=== PATIENT | male | born 1960 | race Caucasian/White ===

== ENCOUNTER 2023-01-03 13:00 | Emergency (ER) | payer MEDICARE ==
[~2023-01-03] VITALS: Ht 182.9 cm; Wt 117.5 kg
[2023-01-03] MEDS ORDERED: XARELTO20 MG PO (13:15)
[2023-01-03] MEDS ORDERED: ENTRESTO 24 MG1 EACH (13:15)
[2023-01-03 13:40] LABS: BASOPHILS ABSOLUTE AUTO 0.05 K/mm3 (0.00-0.23); BASOPHILS PERCENT AUTO 1 % (0-2); EOSINOPHILS ABSOLUTE AUTO 0.16 K/mm3 (0.00-0.68); EOSINOPHILS PERCENT AUTO 2 % (0-6); Hemoglobin 18.3 g/dL (13.5-17.5); IMMATURE GRAN ABSOLUTE AUTO 0.09 K/mm3 (0.00-0.10); IMMATURE GRAN PERCENT AUTO 1 % (0-1); LYMPHOCYTES ABSOLUTE AUTO 1.75 K/mm3 (0.84-5.20); LYMPHOCYTES PERCENT AUTO 25 % (21-46); MONOCYTES ABSOLUTE AUTO 0.61 K/mm3 (0.16-1.47); MONOCYTES PERCENT AUTO 9 % (4-13); Mean Corpuscular HGB 30.7 pg (26.0-34.0); Mean Corpuscular HGB Conc 33.9 g/dL (31.5-36.5); Mean Corpuscular Volume 91 fL (80-100); NEUTROPHILS PERCENT AUTO 62 % (41-73); Platelet Count 132 K/mm3 (150-400); RDW Coefficient Variation 13.1 % (11.7-14.2); RDW Standard Deviation 43.8 fL (35.1-46.3); Red Blood Cell Count 5.97 M/mm3 (4.30-5.90); White Blood Cell Count 7.06 K/mm3 (4.00-11.30)
[2023-01-03 13:59] LABS: Albumin, Blood 3.3 g/dL (3.4-5.0); Albumin/Globulin Ratio 0.9 (0.8-1.8); Bilirubin, Total 0.7 mg/dL (0.1-1.0); Bun/Creatinine Ratio 21.9 (12.0-20.0); Calcium, Blood 8.8 mg/dL (8.5-10.1); Creatinine, Blood 0.82 mg/dL (0.60-1.20); Globulin, Blood 3.6 g/dL (2.2-4.0); Potassium, Blood 3.9 mmol/L (3.5-5.5); Total Protein, Blood 6.9 g/dL (6.4-8.2)
[2023-01-03 17:00] VITALS: BP 157/112
== END 2023-01-03 17:57 | disposition home or self-care (01) ==
LOC: ER 13:00
PROVIDERS: Emergency Medicine
DX: R07.89 Other chest pain (principal); R05.9 Cough, unspecified; Z79.899 Other long term (current) drug therapy; I50.9 Heart failure, unspecified; I25.2 Old myocardial infarction
CPT/HCPCS: 71045; 80053; 83880; 84484; 85025; 93005; 93010; 99284-25

== ENCOUNTER 2023-12-05 11:14 | Day surgery (SDC) | payer MEDICARE ==
[~2023-12-05 11:14] MED LIST: ABAT250V IV; Abatacept/Maltose 1,000 MG in NS 100 ML IV SCH; ENTRESTO 24 MG1 EACH; ENTRESTO 49 MG1 EAC2 PO; FISH OIL 1,0001 EA10 PO; FURO80 PO; MULVITA PO; POTCHL20ER PO; XARELTO PO; XARELTO20 MG PO
[2023-12-05] MEDS ORDERED: [UNRECOGNIZED DRUG - OTHER] PO (13:37)
[2023-12-05 13:46] VITALS: BP 155/87
[2023-12-05 14:25] LABS: BASOPHILS ABSOLUTE AUTO 0.05 K/mm3 (0.00-0.23); BASOPHILS PERCENT AUTO 1 % (0-2); EOSINOPHILS ABSOLUTE AUTO 0.14 K/mm3 (0.00-0.68); EOSINOPHILS PERCENT AUTO 2 % (0-6); Hematocrit 50.8 % (37.0-53.0); Hemoglobin 17.3 g/dL (13.5-17.5); IMMATURE GRAN ABSOLUTE AUTO 0.03 K/mm3 (0.00-0.10); IMMATURE GRAN PERCENT AUTO 1 % (0-1); LYMPHOCYTES ABSOLUTE AUTO 1.64 K/mm3 (0.84-5.20); LYMPHOCYTES PERCENT AUTO 26 % (21-46); MONOCYTES ABSOLUTE AUTO 0.65 K/mm3 (0.16-1.47); MONOCYTES PERCENT AUTO 11 % (4-13); Mean Corpuscular HGB 30.8 pg (26.0-34.0); Mean Corpuscular HGB Conc 34.1 g/dL (31.5-36.5); Mean Corpuscular Volume 91 fL (80-100); NEUTROPHILS PERCENT AUTO 60 % (41-73); Platelet Count 142 K/mm3 (150-400); RDW Coefficient Variation 13.2 % (11.7-14.2); RDW Standard Deviation 44.1 fL (35.1-46.3); Red Blood Cell Count 5.61 M/mm3 (4.30-5.90); White Blood Cell Count 6.21 K/mm3 (4.00-11.30)
[2023-12-05 14:47] LABS: C-REACTIVE PROTEIN, EXT RANGE 0.423 mg/dL (0.000-0.300)
[2023-12-05 14:48] LABS: Albumin, Blood 3.7 g/dL (3.4-5.0); Bilirubin, Total 0.9 mg/dL (0.1-1.0); Bun/Creatinine Ratio 16.9 (12.0-20.0); Calcium, Blood 8.9 mg/dL (8.5-10.1); Creatinine, Blood 0.95 mg/dL (0.60-1.20); Globulin, Blood 3.8 g/dL (2.2-4.0); Potassium, Blood 3.2 mmol/L (3.5-5.5); Total Protein, Blood 7.5 g/dL (6.4-8.2)
== END 2023-12-05 15:00 | disposition home or self-care (01) ==
LOC: ATC 11:14
PROVIDERS: Internal Medicine
DX: M05.79 Rheumatoid arthritis with rheumatoid factor of multiple sites without organ or systems involvement (principal); M75.42 Impingement syndrome of left shoulder; Z79.899 Other long term (current) drug therapy
CPT/HCPCS: 80053; 85025; 86140; 96365; J0129-JA

== ENCOUNTER 2024-01-09 01:04 | Day surgery (SDC) | payer MEDICARE, OTHER ==
[~2024-01-09 01:04] MED LIST changes: +[UNRECOGNIZED DRUG - OTHER] PO
[2024-01-09] MEDS ORDERED: Abatacept/Maltose 1,000 MG in NS 100 ML IV SCH (06:00)
[2024-01-09 14:57] VITALS: BP 123/84
== END 2024-01-09 16:07 | disposition home or self-care (01) ==
LOC: ATC 01:04
DX: M05.79 Rheumatoid arthritis with rheumatoid factor of multiple sites without organ or systems involvement (principal); M75.42 Impingement syndrome of left shoulder; Z79.899 Other long term (current) drug therapy
CPT/HCPCS: 96365; J0129-JA

== ENCOUNTER 2024-02-06 04:17 | Day surgery (SDC) | payer MEDICARE, OTHER ==
[~2024-02-06] VITALS: Wt 121.3 kg
[~2024-02-06 04:17] MED LIST changes: +AMLO5 PO; -Abatacept/Maltose 1,000 MG in NS 100 ML IV SCH; +Acerola C500 MG PO; +Aspir 8181 MG PO; +ENTRESTO 24 MG1 EAC2; -ENTRESTO 49 MG1 EAC2 PO; +Isosorbide Mono30 MG PO; +NITR.4SL SL; +Vitamin D1000 UNI1 PO
[2024-02-06] MEDS ORDERED: Abatacept/Maltose 1,000 MG in NS 100 ML IV SCH (06:00)
[2024-02-06 13:55] VITALS: BP 121/80
== END 2024-02-06 14:57 | disposition home or self-care (01) ==
LOC: ATC 04:17
DX: M05.79 Rheumatoid arthritis with rheumatoid factor of multiple sites without organ or systems involvement (principal); I25.10 Atherosclerotic heart disease of native coronary artery without angina pectoris; Z86.718 Personal history of other venous thrombosis and embolism; Z86.711 Personal history of pulmonary embolism
CPT/HCPCS: 96365; J0129-JA

== ENCOUNTER 2024-03-20 02:40 | Day surgery (SDC) | payer MEDICARE, OTHER ==
[2024-03-20] MEDS ORDERED: NS IV SCH (07:05)
[2024-03-20 15:15] VITALS: BP 133/77
[2024-03-20 15:49] LABS: Hematocrit 42.6 % (37.0-53.0); Hemoglobin 14.4 g/dL (13.5-17.5); Mean Corpuscular HGB 31.2 pg (26.0-34.0); Mean Corpuscular HGB Conc 33.8 g/dL (31.5-36.5); Mean Corpuscular Volume 92 fL (80-100); Mean Platelet Volume 9.7 fL (9.1-12.4); Platelet Count 144 K/mm3 (150-400); RDW Coefficient Variation 12.8 % (11.7-14.2); RDW Standard Deviation 42.9 fL (35.1-46.3); Red Blood Cell Count 4.62 M/mm3 (4.30-5.90); White Blood Cell Count 6.12 K/mm3 (4.00-11.30)
[2024-03-20 16:34] LABS: C-REACTIVE PROTEIN, EXT RANGE 0.484 mg/dL (0.000-0.300)
[2024-03-20 16:38] LABS: Albumin, Blood 3.5 g/dL (3.4-5.0); Bilirubin, Total 0.8 mg/dL (0.1-1.0); Bun/Creatinine Ratio 19.5 (12.0-20.0); Calcium, Blood 8.8 mg/dL (8.5-10.1); Creatinine, Blood 0.98 mg/dL (0.60-1.20); Globulin, Blood 3.6 g/dL (2.2-4.0); Potassium, Blood 3.3 mmol/L (3.5-5.5); Total Protein, Blood 7.1 g/dL (6.4-8.2)
[2024-03-20 16:51] LABS: BAND PERCENT MAN 1 % (0-8); BASOPHILS PERCENT MAN 0 % (0-2); EOSINOPHILS ABSOLUTE MAN 0.12 K/mm3 (0.00-0.68); EOSINOPHILS PERCENT MAN 2 % (0-6); LYMPHOCYTES PERCENT MAN 18 % (21-46); MONOCYTES ABSOLUTE MAN 0.61 K/mm3 (0.16-1.47); MONOCYTES PERCENT MAN 10 % (4-13); MYELOCYTE ABSOLUTE MAN 0.06 K/mm3 (0.00-0.00); MYELOCYTE PERCENT MAN 1 % (0-0); NEUTROPHILS ABSOLUTE MAN 4.22 K/mm3 (1.96-9.15); SEG NEUTROPHILS PERCENT MAN 68 % (41-73); TOTAL CELLS COUNTED 100
== END 2024-03-20 16:57 | disposition home or self-care (01) ==
LOC: ATC 02:40
PROVIDERS: Internal Medicine
DX: M05.79 Rheumatoid arthritis with rheumatoid factor of multiple sites without organ or systems involvement (principal); M75.42 Impingement syndrome of left shoulder; Z79.899 Other long term (current) drug therapy
CPT/HCPCS: 80053; 85007; 85027; 86140; 96365

== ENCOUNTER 2024-04-09 10:58 | Day surgery (SDC) | payer MEDICARE, OTHER ==
[~2024-04-09] VITALS: Ht 182.9 cm; Wt 120.7 kg
[~2024-04-09 10:58] MED LIST changes: +TORSE20 PO
[2024-04-09 11:19] VITALS: BP 151/95
[2024-04-09] MEDS ORDERED: NS 250 ML IV ONE (11:23)
[2024-04-09] MEDS ORDERED: Heparin Sodium 1000 Units/ML 10ML MDV ONE ×2 (11:23→13:46)
[2024-04-09] MEDS ORDERED: NS 1,000 ML IV ONE (11:23)
[2024-04-09] MEDS ORDERED: Lactated Ringer's 1,000 ML IV ONE (11:39)
[2024-04-09] MEDS ORDERED: Ondansetron HCl 2 MG / ML 2ML Vial ONE (12:23)
[2024-04-09] MEDS ORDERED: FentaNYL Citrate 50 MCG/ML 2 ML Injection ONE ×2 (12:24→13:29)
[2024-04-09] MEDS ORDERED: Dexamethasone Sod Phos 10 MG/ML 1ML VIAL IV ONE (12:35)
[2024-04-09 14:57] VITALS: BP 151/99
[2024-04-09 15:00] VITALS: BP 147/93
--- NOTE | 2024-04-09 15:06 | NUR ---
PT RETURNS FROM THE LAB. AWAKE, DROWSY, AND ORIENTED. PT. HAS FLOSTASIS TO RIGHT POP AND SUTURES TO LEFT POP. NO SWELLING OR OOZING TO SITE. PT SPOUSE TO BEDSIDE. PT VSS AT THIS TIME.
--- NOTE | 2024-04-09 15:08 | NUR ---
PT ABLE TO VOID 300CC OF CLEAR YELLOW URINE.
[2024-04-09 15:15] VITALS: BP 139/84
[2024-04-09 15:30] VITALS: BP 149/86
--- NOTE | 2024-04-09 16:00 | NUR ---
PT UP TO AMBULATE TO BATHROOM. FLOSTASIS RELEASED SLOWLY AND SLOW OOZE NOTED. FLOSTASIS REPLACED. OOZING STOPPED. PT BACK TO BED AT THIS TIME. LEFT SIDE WITH SUTURES NO SWELLING OR OOZING.
--- NOTE | 2024-04-09 16:15 | NUR ---
FLOSTASIS REMOVED, NO OOZING AT THIS TIME DRESSING APPLIED TO LEG. PT. VSS REMAIN STABLE. DISCHARGE INSTRUCTIONS REVIEWED. IV REMOVED CATHTER INTACT. PT ABLE TO GET DRESSED WITH OUT DIFFICULTY.
[2024-04-09] MEDS ORDERED: SuccINYLCHOLINE Chloride 20 MG/ML 10ML Injection XX ONE (21:23)
[2024-04-09] MEDS ORDERED: Etomidate 2MG / ML 10ML Vial XX ONE (21:23)
[2024-04-09] MEDS ORDERED: ePHEDrine Sulfate 50 MG/ML 1ML Injection XX ONE (21:23)
[2024-04-09] MEDS ORDERED: Rocuronium Bromide 10 MG/ML 5ML Injection IV ONE (21:23)
== END 2024-04-09 16:45 | disposition home or self-care (01) ==
LOC: MHTC 10:58
DX: I87.001 Postthrombotic syndrome without complications of right lower extremity (principal); I82.90 Acute embolism and thrombosis of unspecified vein; I77.810 Thoracic aortic ectasia; G47.33 Obstructive sleep apnea (adult) (pediatric); I25.10 Atherosclerotic heart disease of native coronary artery without angina pectoris; I50.9 Heart failure, unspecified; Z87.891 Personal history of nicotine dependence; Z88.5 Allergy status to narcotic agent; Z88.8 Allergy status to other drugs, medicaments and biological substances; Z95.5 Presence of coronary angioplasty implant and graft
CPT/HCPCS: 36005; 37248; 37249; 75625; 75716; 75820; 76937; C1725; C1769; C1887; C1894; J0330; J1100; J1644; J2405; J3010; J7030; J7050; J7120; Q9967

== ENCOUNTER 2024-05-04 05:45 | Day surgery (SDC) | payer MEDICARE, OTHER ==
[2024-05-04] MEDS ORDERED: Abatacept/Maltose 1,000 MG in NS 100 ML IV SCH (06:00)
[2024-05-04 14:03] VITALS: BP 149/80
== END 2024-05-04 15:32 | disposition home or self-care (01) ==
LOC: ATC 05:45
DX: M05.79 Rheumatoid arthritis with rheumatoid factor of multiple sites without organ or systems involvement (principal); M75.42 Impingement syndrome of left shoulder; Z79.899 Other long term (current) drug therapy
CPT/HCPCS: 96365; J0129-JA

== ENCOUNTER 2024-08-24 03:53 | Day surgery (SDC) | payer MEDICARE, OTHER ==
[2024-08-24] MEDS ORDERED: ABATACEPT IV SCH (06:00)
[2024-08-24] MEDS ORDERED: NS IV SCH (06:00)
[2024-08-24] MEDS ORDERED: MALTOSE IV SCH (06:00)
[2024-08-24 15:44] VITALS: BP 135/78
[2024-08-24 16:55] LABS: BASOPHILS ABSOLUTE AUTO 0.09 K/mm3 (0.00-0.23); BASOPHILS PERCENT AUTO 1 % (0-2); EOSINOPHILS ABSOLUTE AUTO 0.29 K/mm3 (0.00-0.68); EOSINOPHILS PERCENT AUTO 4 % (0-6); Hematocrit 46.9 % (37.0-53.0); IMMATURE GRAN ABSOLUTE AUTO 0.06 K/mm3 (0.00-0.10); IMMATURE GRAN PERCENT AUTO 1 % (0-1); LYMPHOCYTES ABSOLUTE AUTO 1.91 K/mm3 (0.84-5.20); LYMPHOCYTES PERCENT AUTO 24 % (21-46); MONOCYTES ABSOLUTE AUTO 0.72 K/mm3 (0.16-1.47); MONOCYTES PERCENT AUTO 9 % (4-13); Mean Corpuscular HGB 31.3 pg (26.0-34.0); Mean Corpuscular HGB Conc 34.1 g/dL (31.5-36.5); Mean Corpuscular Volume 92 fL (80-100); Mean Platelet Volume 10.8 fL (9.1-12.4); NEUTROPHILS ABSOLUTE AUTO 4.83 K/mm3 (1.96-9.15); NEUTROPHILS PERCENT AUTO 61 % (41-73); Platelet Count 129 K/mm3 (150-400); RDW Coefficient Variation 13.2 % (11.7-14.2); RDW Standard Deviation 44.7 fL (35.1-46.3); Red Blood Cell Count 5.11 M/mm3 (4.30-5.90)
[2024-08-24 17:10] LABS: C-REACTIVE PROTEIN, EXT RANGE 0.348 mg/dL (0.000-0.300)
[2024-08-24 17:12] LABS: Albumin, Blood 3.8 g/dL (3.4-5.0); Albumin/Globulin Ratio 1.1 (0.8-1.8); Bilirubin, Total 0.8 mg/dL (0.1-1.0); Bun/Creatinine Ratio 21.7 (12.0-20.0); Calcium, Blood 9.3 mg/dL (8.5-10.1); Creatinine, Blood 0.97 mg/dL (0.60-1.20); Globulin, Blood 3.5 g/dL (2.2-4.0); Potassium, Blood 3.3 mmol/L (3.5-5.5); Total Protein, Blood 7.3 g/dL (6.4-8.2)
== END 2024-08-24 17:05 | disposition home or self-care (01) ==
LOC: ATC 03:53
PROVIDERS: Internal Medicine Rheumatology
DX: M05.79 Rheumatoid arthritis with rheumatoid factor of multiple sites without organ or systems involvement (principal)
CPT/HCPCS: 80053; 85025; 86140; 96365; J0129-JA

== ENCOUNTER 2024-09-28 03:52 | Day surgery (SDC) | payer MEDICARE, OTHER ==
[~2024-09-28 03:52] MED LIST changes: +Abatacept/Maltose 1,000 MG in NS 100 ML IV SCH
[2024-09-28 15:10] VITALS: BP 158/87
== END 2024-09-28 16:30 | disposition home or self-care (01) ==
LOC: ATC 03:52
DX: M05.79 Rheumatoid arthritis with rheumatoid factor of multiple sites without organ or systems involvement (principal); I25.10 Atherosclerotic heart disease of native coronary artery without angina pectoris; M19.042 Primary osteoarthritis, left hand; M19.041 Primary osteoarthritis, right hand
CPT/HCPCS: 96365; J0129-JA

== ENCOUNTER 2024-11-26 00:35 | Day surgery (SDC) | payer MEDICARE, OTHER ==
[2024-11-26 15:02] VITALS: BP 130/75
== END 2024-11-26 15:50 | disposition home or self-care (01) ==
LOC: ATC 00:35
DX: M06.09 Rheumatoid arthritis without rheumatoid factor, multiple sites (principal); M15.0 Primary generalized (osteo)arthritis; I25.10 Atherosclerotic heart disease of native coronary artery without angina pectoris; E66.9 Obesity, unspecified; Z68.34 Body mass index [BMI] 34.0-34.9, adult; Z79.01 Long term (current) use of anticoagulants; Z79.82 Long term (current) use of aspirin; Z79.899 Other long term (current) drug therapy; Z88.5 Allergy status to narcotic agent; Z88.8 Allergy status to other drugs, medicaments and biological substances; Z96.643 Presence of artificial hip joint, bilateral; Z96.651 Presence of right artificial knee joint
CPT/HCPCS: 96365; J0129-JA

== ENCOUNTER 2024-12-24 00:23 | Day surgery (SDC) | payer MEDICARE, OTHER ==
[2024-12-24 15:00] VITALS: BP 121/71
[2024-12-24 15:58] LABS: BASOPHILS ABSOLUTE AUTO 0.08 K/mm3 (0.00-0.23); BASOPHILS PERCENT AUTO 1 % (0-2); EOSINOPHILS ABSOLUTE AUTO 0.22 K/mm3 (0.00-0.68); EOSINOPHILS PERCENT AUTO 3 % (0-6); Hematocrit 46.4 % (37.0-53.0); Hemoglobin 15.4 g/dL (13.5-17.5); IMMATURE GRAN ABSOLUTE AUTO 0.05 K/mm3 (0.00-0.10); IMMATURE GRAN PERCENT AUTO 1 % (0-1); LYMPHOCYTES ABSOLUTE AUTO 1.80 K/mm3 (0.84-5.20); LYMPHOCYTES PERCENT AUTO 26 % (21-46); MONOCYTES ABSOLUTE AUTO 0.61 K/mm3 (0.16-1.47); MONOCYTES PERCENT AUTO 9 % (4-13); Mean Corpuscular HGB Conc 33.2 g/dL (31.5-36.5); Mean Corpuscular Volume 91 fL (80-100); NEUTROPHILS ABSOLUTE AUTO 4.20 K/mm3 (1.96-9.15); NEUTROPHILS PERCENT AUTO 60 % (41-73); NRBC ABSOLUTE 0.00 K/mm3 (0.00-0.02); NRBC Auto 0.0 /100 WBC (0.0-0.2); Platelet Count 146 K/mm3 (150-400); RDW Coefficient Variation 12.7 % (11.7-14.2); RDW Standard Deviation 42.8 fL (35.1-46.3)
[2024-12-24 16:05] LABS: C-REACTIVE PROTEIN, EXT RANGE <0.290 mg/dL (0.000-0.300)
[2024-12-24 16:17] LABS: Alanine Aminotransfer (ALT/SGP 46 U/L (12-78); Albumin, Blood 3.5 g/dL (3.4-5.0); Albumin/Globulin Ratio 1.0 (0.8-1.8); Anion Gap 4 mmol/L (3-11); Aspartate Aminotrans (AST/SGOT 39 U/L (12-37); Bilirubin, Total 0.8 mg/dL (0.1-1.0); Blood Urea Nitrogen 17 mg/dL (8-24); CO2, Blood 27 mmol/L (21-32); Calcium, Blood 8.4 mg/dL (8.5-10.1); Chloride, Blood 107 mmol/L (98-108); Creatinine, Blood 1.02 mg/dL (0.60-1.20); Globulin, Blood 3.6 g/dL (2.2-4.0); Glucose, Blood 153 mg/dL (70-99); Potassium, Blood 3.1 mmol/L (3.5-5.5); Sodium, Blood 135 mmol/L (136-145); Total Protein, Blood 7.1 g/dL (6.4-8.2)
--- NOTE | 2024-12-24 17:02 | NUR ---
LABS FAXED TO DR BRICENO
== END 2024-12-24 16:15 | disposition home or self-care (01) ==
LOC: ATC 00:23
PROVIDERS: Internal Medicine
DX: M06.09 Rheumatoid arthritis without rheumatoid factor, multiple sites (principal); M19.041 Primary osteoarthritis, right hand; I25.10 Atherosclerotic heart disease of native coronary artery without angina pectoris; Z88.5 Allergy status to narcotic agent; Z88.8 Allergy status to other drugs, medicaments and biological substances; Z79.82 Long term (current) use of aspirin; Z79.899 Other long term (current) drug therapy
CPT/HCPCS: 80053; 85025; 86140; 96365; J0129-JA

== ENCOUNTER → 2024-12-26 | Outpatient (CLI) | payer MEDICARE, OTHER ==
[~2024-12-26] MED LIST changes: -Abatacept/Maltose 1,000 MG in NS 100 ML IV SCH
== END | disposition home or self-care (01) ==
LOC: LAB SHORT 08:09 → LAB 08:09
DX: L57.0 Actinic keratosis (principal); L82.0 Inflamed seborrheic keratosis; D22.62 Melanocytic nevi of left upper limb, including shoulder; L82.1 Other seborrheic keratosis
CPT/HCPCS: 88305

== ENCOUNTER → 2025-01-16 | Outpatient (CLI) | payer MEDICARE ==
[~2025-01-16] MED LIST changes: +ASCO500 PO; -ENTRESTO 24 MG1 EAC2; +ENTRESTO 24 MG1 EACH PO; +TAMS.4ER PO
== END ==
LOC: LAB 14:58 → LAB SHORT 14:58
DX: L82.1 Other seborrheic keratosis (principal)
CPT/HCPCS: 88305

== ENCOUNTER 2025-01-23 06:41 | Day surgery (SDC) | payer MEDICARE, OTHER ==
[2025-01-23] VITALS (9 sets, daily range): BP systolic 127–144; BP diastolic 72–90
[~2025-01-23] VITALS: Ht 182.9 cm; Wt 118.2 kg
[~2025-01-23 06:41] MED LIST changes: +CefOXitin Sodium 2,000 MG in NS 100 ML IV SCH
[2025-01-23] MEDS ORDERED: Midazolam HCl 1MG / ML 2ML Vial ONE (07:02)
[2025-01-23] MEDS ORDERED: FentaNYL Citrate 50 MCG/ML 2 ML Injection ONE (07:02)
[2025-01-23] MEDS ORDERED: CefOXitin 2000 mg Vial ONE (07:05)
--- NOTE | 2025-01-23 07:14 | NUR ---
History, Chart, Medications and Allergies reviewed before start of procedure. Patient confirms NPO status and agrees with scheduled surgery. Pre-Op teaching done. Pt verbalizes understanding. Patient reports completing Chlorhexadine shower X2 prior to admission to hospital. Lungs clear T/O to Auscultation.
[2025-01-23] MEDS ORDERED: Ondansetron HCl 2 MG / ML 2ML Vial ONE (07:48)
[2025-01-23] MEDS ORDERED: Dexamethasone Sod Phos 10 MG/ML 1ML VIAL ONE (07:48)
[2025-01-23] MEDS ORDERED: HYDROmorphone HCl/Pf 1MG SYR IV PRN ×2 (08:00→08:05)
[2025-01-23] MEDS ORDERED: Ondansetron HCl 2 MG / ML 2ML Vial IV PRN (08:05)
[2025-01-23] MEDS ORDERED: FentaNYL Citrate 50 MCG/ML 2 ML Injection IV PRN ×2 (08:05)
[2025-01-23] MEDS ORDERED: Ketorolac Tromethamine 30mg Vial ONE (08:17)
--- NOTE | 2025-01-23 09:08 | NUR ---
Post op - arrival to room 212 s/p TURP. A&Ox3, vss, denies pain, olvera draining yellow urine. Oriented to room and call light, at bedside
--- NOTE | 2025-01-23 10:47 | NUR ---
Pt up ambulated without difficulty, drinking fluids well, urine changed from yellow upon arrival to room to light pink to light red. Increased fluids and discussed importance of fluid intake at home. Dr. Hammond at bedside at 0940 discussed plan and follow up with patient. Discussed cath care with patient and spouse. Denies questions. Escobar draining pale pink urine at this time.
== END 2025-01-23 11:31 | disposition home or self-care (01) ==
LOC: ORSCMMR 06:41 → ORD 07:30 → SURS 08:44 → ORSCMMR 11:31
PROVIDERS: Urology
PROC: 0VT08ZZ Resection of Prostate, Via Natural or Artificial Opening Endoscopic (ICD-10-PCS; principal; 2025-01-23 07:30)
DX: N40.0 Benign prostatic hyperplasia without lower urinary tract symptoms (principal); I10 Essential (primary) hypertension; I48.91 Unspecified atrial fibrillation; Z79.01 Long term (current) use of anticoagulants; Z79.899 Other long term (current) drug therapy; Z79.82 Long term (current) use of aspirin
CPT/HCPCS: 88305; A4346; C1758; C1769; J0694; J1100; J1885; J2250; J2405; J2704; J3010; J7120

== ENCOUNTER 2025-02-28 03:18 | Day surgery (SDC) | payer MEDICARE, OTHER ==
[~2025-02-28 03:18] MED LIST changes: -CefOXitin Sodium 2,000 MG in NS 100 ML IV SCH
[2025-02-28] MEDS ORDERED: Abatacept/Maltose 1,000 MG in NS 100 ML IV SCH (06:00)
[2025-02-28 13:55] VITALS: BP 129/71
== END 2025-02-28 15:07 | disposition home or self-care (01) ==
LOC: ATC 03:18
DX: M06.09 Rheumatoid arthritis without rheumatoid factor, multiple sites (principal); M19.041 Primary osteoarthritis, right hand; I25.10 Atherosclerotic heart disease of native coronary artery without angina pectoris; E66.9 Obesity, unspecified; Z68.34 Body mass index [BMI] 34.0-34.9, adult; Z79.82 Long term (current) use of aspirin; Z79.899 Other long term (current) drug therapy; Z88.5 Allergy status to narcotic agent; Z88.8 Allergy status to other drugs, medicaments and biological substances; Z96.643 Presence of artificial hip joint, bilateral; Z96.651 Presence of right artificial knee joint
CPT/HCPCS: 96365; J0129-JA

== ENCOUNTER 2025-04-01 00:41 | Day surgery (SDC) | payer MEDICARE, OTHER ==
[2025-04-01] MEDS ORDERED: Abatacept/Maltose 1,000 MG in NS 100 ML IV SCH (06:00)
[2025-04-01 15:00] VITALS: BP 144/79
== END 2025-04-01 16:23 | disposition home or self-care (01) ==
LOC: ATC 00:41
DX: M06.09 Rheumatoid arthritis without rheumatoid factor, multiple sites (principal)
CPT/HCPCS: 96365; J0129-JA

== ENCOUNTER 2025-04-29 00:43 | Day surgery (SDC) | payer MEDICARE, OTHER ==
[2025-04-29] MEDS ORDERED: Abatacept/Maltose 1,000 MG in NS 100 ML IV SCH (09:00)
[2025-04-29 14:27] VITALS: BP 125/71
== END 2025-04-29 15:29 | disposition home or self-care (01) ==
LOC: ATC 00:43
DX: M06.09 Rheumatoid arthritis without rheumatoid factor, multiple sites (principal); I25.10 Atherosclerotic heart disease of native coronary artery without angina pectoris; M19.041 Primary osteoarthritis, right hand; Z88.5 Allergy status to narcotic agent; Z88.8 Allergy status to other drugs, medicaments and biological substances; Z79.899 Other long term (current) drug therapy
CPT/HCPCS: 96413; J0129-JA